=== PATIENT | male | born 2000 | race Caucasian/White ===

== ENCOUNTER 2022-10-16 08:46 | Day surgery (SDC) | payer OTHER ==
[2022-10-15 17:18] VITALS: BMI 22.1
[2022-10-16] MEDS ORDERED: Oxymetazoline HCl 0.05% (30 ML BOT) ONE ×2 (09:14→09:32)
[2022-10-16] MEDS ORDERED: EPINEPHrine 1 MG/ML AMP ONE (09:32)
[2022-10-16] MEDS ORDERED: Bacitracin Zinc Ointment 30 gm TUBE ONE (09:32)
[2022-10-16] MEDS ORDERED: Lidocaine 1% (PF) 30 ML VIAL ONE (09:32)
[2022-10-16] MEDS ORDERED: Midazolam HCl 2 mg/2 ml Vial ONE (09:42)
[2022-10-16] MEDS ORDERED: fentaNYL PF 100 MCG/2 ML SYRINGE ONE (09:43)
[2022-10-16] MEDS ORDERED: Ondansetron PF 4 MG/2 ML Vial ONE (09:44)
[2022-10-16] MEDS ORDERED: Dexamethasone 20 MG/5 ML VIAL ONE (09:44)
[2022-10-16] MEDS ORDERED: PROPOFOL 200 MG/20 ML VIAL ONE (09:44)
[2022-10-16] MEDS ORDERED: HYDROcodone/Acetaminophen 5/325 mg Tablet ONE (11:50)
== END 2022-10-16 13:15 | disposition home or self-care (01) ==
LOC: SDC 08:46
PROVIDERS: ATTEND Otolaryngology Plastic Surgery within the Head & Neck
PROC: 09SM0ZZ Reposition Nasal Septum, Open Approach (ICD-10-PCS; principal; 2022-10-16)
PROC: 095L0ZZ Destruction of Nasal Turbinate, Open Approach (ICD-10-PCS; principal; 2022-10-16)
PROC: 0NSB34Z Reposition Nasal Bone with Internal Fixation Device, Percutaneous Approach (ICD-10-PCS; principal; 2022-10-16)
DX: J34.2 Deviated nasal septum (principal); J34.3 Hypertrophy of nasal turbinates; S02.2XXA Fracture of nasal bones, initial encounter for closed fracture; J34.89 Other specified disorders of nose and nasal sinuses; X58.XXXA Exposure to other specified factors, initial encounter; Y93.62 Activity, american flag or touch football
CPT/HCPCS: J0171; J1100; J2001; J2250; J2405; J2704